=== PATIENT | male | born 1990 | race Caucasian/White ===

== ENCOUNTER 2020-02-01 14:32 | Emergency (ER) | payer OTHER ==
[~2020-02-01] VITALS: Ht 177.8 cm; Wt 94.8 kg
[~2020-02-01 14:32] MED LIST: VIC
[2020-02-01 14:37] VITALS: BP 129/79
[2020-02-01 15:20] VITALS: BP 129/79
== END 2020-02-01 15:21 | disposition home or self-care (01) ==
LOC: MED 14:32
DX: R07.9 Chest pain, unspecified (principal); R55 Syncope and collapse; I51.9 Heart disease, unspecified; Z79.899 Other long term (current) drug therapy; Z98.890 Other specified postprocedural states; Z88.8 Allergy status to other drugs, medicaments and biological substances
CPT/HCPCS: 93005; 99283